=== PATIENT | female | born 1990 | race Caucasian/White ===

== ENCOUNTER 2025-03-03 11:59 | Emergency (ER) | payer OTHER, SELFPAY ==
[2025-03-03 12:13] VITALS: BP 120/68; PULSE 82; RESP 18; TEMP 36.4; O2SAT 99; BMI 19.2
--- NOTE | 2025-03-03 12:25 | ED.LOWEXIN ---
HPI - Extremity Injury (Lower) <Lucia Duggan PA-C - Last Filed: 03/03/25 14:56> General Chief Complaint: Extremity Injury, Lower Stated Complaint: Per patient possible DVT x 3 days Time Seen by Provider: 03/03/25 12:25 Source: patient Mode of arrival: Ambulatory History of Present Illness HPI Narrative: Ms. Benoit is a pleasant 34-year-old female with no reported past medical history who presents to the emergency department for concern of DVT x3 days. Patient states she was hit on the left thigh by a horse a few days ago had a bruise, however bruising has now started in the lateral aspect of the left knee with some calf pain, she spoke with friends were nurses and came for concern of possible DVT. States that she has a high pain tolerance, does not need any oral pain medication, still able to ambulate and move around without difficulty. At nighttime she has pain in the left thigh in the lateral knee/calf that makes that makes sleeping difficult. Denies flu-like symptoms, fevers, chills, shortness of breath, any other concerns. Related Data Allergies Allergy/AdvReac Type Severity Reaction Status Date / Time No Known Drug Allergies Allergy Verified 03/03/25 12:17 Review of Systems <Lucia Duggan PA-C - Last Filed: 03/03/25 14:56> Review of Systems ROS Unobtainable: All systems reviewed & are unremarkable except as noted in HPI and below Patient History <Lucia Duggan PA-C - Last Filed: 03/03/25 14:56> Social History Smoking Status: Never smoker Smoking Status: Never smoker Exam <Lucia Duggan PA-C - Last Filed: 03/03/25 14:56> Narrative Exam Narrative: GENERAL: 34 year old patient appears stated age. Well-developed atheltic appearing patient, in no acute distress. HEAD: Atraumatic. Normocephalic. NECK: Trachea midline. Cervical ROM intact. CARDIOVASCULAR: Regular rate RESPIRATORY: ?Nonlabored respirations. ?Speaking in clear, full sentences. EXTREMITIES: Faint ecchymosis on mid lateral left thigh and lateral left knee. 2+ DP and PT pulses bilaterally, brisk cap refill in the toes, no calf swelling, mild tenderness on the left. No open wounds. Full flexion-extension left knee without difficulty. NEURO: AOx3. ?Clear speech. ?Moves all 4 extremities appropriately. SKIN: Left leg ecchymosis described above. Initial Vital Signs Initial Vital Signs: Vital Signs Temperature 97.5 F L 03/03/25 12:13 Pulse Rate 82 03/03/25 12:13 Respiratory Rate 18 03/03/25 12:13 Blood Pressure 120/68 03/03/25 12:13 Pulse Oximetry 99 03/03/25 12:13 Oxygen Delivery Method Room Air 03/03/25 12:13 <Leigha Lujan DO - Last Filed: 03/03/25 15:42> Initial Vital Signs Initial Vital Signs: Vital Signs Temperature 97.5 F L 03/03/25 12:13 Pulse Rate 82 03/03/25 12:13 Respiratory Rate 18 03/03/25 12:13 Blood Pressure 120/68 03/03/25 12:13 Pulse Oximetry 99 03/03/25 12:13 Oxygen Delivery Method Room Air 03/03/25 12:13 Course <Lucia Duggan PA-C - Last Filed: 03/03/25 14:56> Orders Ordered: ED Orders 03/03/25 12:35 US periph venous low extrem lt Stat Vital Signs Vital signs: Vital Signs - 8 hr 03/03/25 12:13 03/03/25 14:26 Temperature 97.5 F L Pulse Rate 82 70 Respiratory Rate 18 16 Blood Pressure 120/68 111/66 Pulse Oximetry 99 99 Oxygen Delivery Method Room Air Room Air <Leigha Lujan DO - Last Filed: 03/03/25 15:42> Orders Ordered: ED Orders 03/03/25 12:35 US periph venous low extrem lt Stat Vital Signs Vital signs: Vital Signs - 8 hr 03/03/25 12:13 03/03/25 14:26 Temperature 97.5 F L Pulse Rate 82 70 Respiratory Rate 18 16 Blood Pressure 120/68 111/66 Pulse Oximetry 99 99 Oxygen Delivery Method Room Air Room Air MDM - Extremity Injury (Lower) <YOEL Lamas Last Filed: 03/03/25 14:56> Imaging Data LLE Vascular US: Radiologist's Impression: PROCEDURE: US PERIPH VENOUS LOW EXTREM LT INDICATIONS: left thigh hematoma? now calf pain, dvt concern TECHNIQUE: Real-time imaging, as well as color and pulse Doppler interrogation, were performed of the lower extremity deep veins from the inguinal ligament to the popliteal fossa, with documentation of the visualized calf veins. COMPARISON: None. FINDINGS: The common femoral, femoral, popliteal, and the visualized calf veins are normally compressible, and free of intraluminal thrombus. Color and pulse Doppler demonstrate normal phasic intraluminal flow. There is normal augmentation response to distal compression maneuver. Peroneal veins are not well seen. IMPRESSION: No findings of lower extremity deep venous thrombosis. Dictated by: Aayush Darnell M.D. on 03/03/2025 at 13:51 Approved by: Aayush Darnell M.D. on 03/03/2025 at 13:56 [facility] Narrative Medical decision making narrative: 34-year-old female with no reported past medical history who presents to the emergency department for concern of DVT x3 days. Differential diagnosis includes but is not limited to hematoma, ecchymosis, contusion, sprain, strain, DVT, etc. On exam patient is in no acute distress, nontoxic-appearing, all vital signs within normal limits. She is ecchymosis on the mid lateral left thigh and knee, trauma was to the thigh. Concerned for DVT. Lower extremities are neurovascularly intact, ambulatory, no bony tenderness or pain with ROM. We will obtain ultrasound. Ultrasound reveals no findings of DVT. Discussed supportive care with the patient including ibuprofen, Tylenol, heat therapy for possible hematoma. Discussed repeat ultrasound in 1 week if symptoms persist. Discussed strict ER return precautions. Patient verbalized understanding of all information is agreeable with the plan, feels very reassured, all questions answered, ambulatory and stable for discharge home. Discharge Plan Departure Patient Disposition: Home Clinical Impression: Contusion of left thigh Qualifiers: Encounter type: initial encounter Qualified Code(s): S70.12XA - Contusion of left thigh, initial encounter Instructions: DI for Hematoma (Bruise) Activity Restrictions/Additional Instructions: Dear Ms. Benoit, Thank you for coming to the emergency department. Today you were evaluated for left lower extremity pain, bruising, concern for DVT. Your ultrasound revealed no blood clot. Please use heat therapy to help dissipate the blood in the left leg as we discussed. If your symptoms do not improve please have a repeat US in 1 week. Please use RICE therapy for your pain in addition to ibuprofen/acetaminophen. Rest the painful area. <del>Ice</del> <del>the</del> <del>area</del> <del>of</del> <del>pain/swelling</del> <del>for</del> <del>at</del> <del>least</del> <del>15</del> <del>minutes,</del> <del>4x</del> <del>a</del> <del>day.</del> Compress the area of swelling using a brace, wrap, or splint if applied. Elevate the painful or swollen extremity by supporting it above the level of the heart with pillows when sitting or laying. Please return to the emergency department if you develop any new or worsening symptoms, severe pain, chest pain, shortness of breath, redness, fevers or other concerns. Please follow up with your primary care doctor within the next 2-3 days for ER follow-up. (If you do not have a PCP you can call [phone]. ?to schedule an appointment with an [facility] Primary Care Provider) IF YOU DEVELOP ANY NEW OR WORSENING SYMPTOMS, RETURN TO THE ER! Please read the attached instructions, they highlight more specific treatments and interventions for you at home. Thank you for letting me participate in your care, Lucia Duggan PA-C Referrals: Manfred MAY MD [Primary Care Provider, Internal Medicine] Stand Alone Forms: Patient Portal/API ED Sign-out <Leigha Lujan, - Last Filed: 03/03/25 15:42> Cosign ED Attending Lewis Attestation: I was immediately available in the department for consultation.
--- NOTE | 2025-03-03 12:35 | DI.US.S_ITS ---
PROCEDURE: US PERIPH VENOUS LOW EXTREM LT INDICATIONS: left thigh hematoma? now calf pain, dvt concern TECHNIQUE: Real-time imaging, as well as color and pulse Doppler interrogation, were performed of the lower extremity deep veins from the inguinal ligament to the popliteal fossa, with documentation of the visualized calf veins. COMPARISON: None. FINDINGS: The common femoral, femoral, popliteal, and the visualized calf veins are normally compressible, and free of intraluminal thrombus. Color and pulse Doppler demonstrate normal phasic intraluminal flow. There is normal augmentation response to distal compression maneuver. Peroneal veins are not well seen. IMPRESSION: No findings of lower extremity deep venous thrombosis. Dictated by: Aayush Darnell M.D. on 03/03/2025 at 13:51 Approved by: Aayush Darnell M.D. on 03/03/2025 at 13:56
[2025-03-03 14:26] VITALS: BP 111/66; PULSE 70; RESP 16; O2SAT 99
== END 2025-03-03 14:27 | disposition home or self-care (01) ==
PROVIDERS: Emergency Provider Physician Assistant; PCP Internal Medicine
DX: S70.12XA Contusion of left thigh, initial encounter (principal); X58.XXXA Exposure to other specified factors, initial encounter
CPT/HCPCS: 93971; 99281; 99283